=== PATIENT | female | born 1980 | race Caucasian/White ===

== ENCOUNTER 2018-09-06 17:11 | Emergency (ER) | payer SELFPAY ==
--- NOTE | 2018-09-06 17:34 | EDM.PDOC ---
ED HPI GENERAL MEDICAL PROBLEM - General Chief Complaint: Genitourinary Problem Stated Complaint: POSSIBLE UTI Time Seen by Provider: 09/06/18 17:33 Source of Information: Reports: Patient History Limitations: Reports: No Limitations - History of Present Illness INITIAL COMMENTS - FREE TEXT/NARRATIVE: Patient eloped from the emergency room prior to physical examination. 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 Below) Other DRIVER ENGINEER History: BV Musculoskeletal History: Reports: None Neurological History: Reports: None Psychiatric History: Reports: None Endocrine/Metabolic History: Reports: None Hematologic History: Reports: None Immunologic History: Reports: None Oncologic (Cancer) History: Reports: None Dermatologic History: Reports: None - Infectious Disease History Infectious Disease History: Reports: Chicken Pox, Other (See Below) Other Infectious Disease History: childhood - Past Surgical History Head Surgeries/Procedures: Reports: None HEENT Surgical History: Reports: None Cardiovascular Surgical History: Reports: None Respiratory Surgical History: Reports: None GI Surgical History: Reports: None Female Surgical History: Reports: Tubal Ligation, Other (See Below) Other Female Surgeries/Procedures: part of cervix removed Endocrine Surgical History: Reports: None Neurological Surgical History: Reports: None Musculoskeletal Surgical History: Reports: None Oncologic Surgical History: Reports: None Dermatological Surgical History: Reports: None Social & Family History - Family History Family Medical History: Noncontributory - Caffeine Use Caffeine Use: Reports: Coffee ED ROS GENERAL - Review of Systems Review Of Systems: See Below (Not evaluated) ED EXAM, RENAL/ - Physical Exam Exam: See Below (Not evaluated) Course - Orders/Labs/Meds Orders: Active Orders 24 hr Category Date Time Status HCG QUALITATIVE,URINE [URCHEM] Stat Lab 09/06/18 17:16 Ordered UA RFX JOYCE AND CULT IF INDIC [URIN] Stat Lab 09/06/18 17:15 Ordered Departure - Departure Time of Disposition: 18:04 Disposition: Eloped 07 Clinical Impression: Eloped from emergency department - Discharge Information Referrals: PCP,None [Primary Care Provider] - Forms: ED Department Discharge - My Orders Last 24 Hours: My Active Orders 09/06/18 17:15 UA RFX JOYCE AND CULT IF INDIC [URIN] Stat 09/06/18 17:16 HCG QUALITATIVE,URINE [URCHEM] Stat - Assessment/Plan Last 24 Hours: My Active Orders 09/06/18 17:15 UA RFX JOYCE AND CULT IF INDIC [URIN] Stat 09/06/18 17:16 HCG QUALITATIVE,URINE [URCHEM] Stat
== END 2018-09-06 18:04 | disposition left against medical advice (07) ==
LOC: MW.ED 17:11
DX: Z53.21 Procedure and treatment not carried out due to patient leaving prior to being seen by health care provider (principal)
CPT/HCPCS: 99281

== ENCOUNTER 2018-09-07 09:31 | Emergency (ER) | payer SELFPAY ==
--- NOTE | 2018-09-07 09:50 | EDM.PDOC ---
ED HPI GENERAL MEDICAL PROBLEM - General Chief Complaint: Genitourinary Problem Stated Complaint: BLADDER INFECTION Time Seen by Provider: 09/07/18 09:44 - History of Present Illness INITIAL COMMENTS - FREE TEXT/NARRATIVE: HISTORY AND PHYSICAL: History of present illness: Patient 38-year-old white female presents with concern of discomfort with urination frequency she had a UTI approximately 3 weeks prior was put on Bactrim she feels this may have been inadequately treated at that time she denies vaginal discharge or irregular bleeding or other concerns is no fever chills or other complaints she denies back pain Review of systems: As per history of present illness and below otherwise all systems reviewed and negative. Past medical history: As per history of present illness and as reviewed below otherwise noncontributory. Surgical history: As per history of present illness and as reviewed below otherwise noncontributory. Social history: No reported history of drug or alcohol abuse. Family history: As per history of present illness and as reviewed below otherwise noncontributory. Physical exam: HEENT: Atraumatic, normocephalic, pupils reactive, negative for conjunctival pallor or scleral icterus, mucous membranes moist, throat clear, neck supple, nontender, trachea midline. Lungs: Clear to auscultation, breath sounds equal bilaterally, chest nontender. Heart: S1S2, regular, negative for clicks, rubs, or JVD. Abdomen: Soft, nondistended, nontender. Negative for masses or hepatosplenomegaly. Negative for costovertebral tenderness. Pelvis: Stable nontender. Genitourinary: Deferred. Rectal: Deferred. Extremities: Atraumatic, negative for cords or calf pain. Neurovascular unremarkable. Neuro: Awake, alert, oriented. Cranial nerves II through XII unremarkable. Cerebellum unremarkable. Motor and sensory unremarkable throughout. Exam nonfocal. Diagnostics: UA with reflex Micro and culture Therapeutics: None Impression: 1 urinary tract infection Definitive disposition and diagnosis as appropriate pending reevaluation and review of above. 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 Below) Other KILN CLEANER History: BV Musculoskeletal History: Reports: None Neurological History: Reports: None Psychiatric History: Reports: None Endocrine/Metabolic History: Reports: None Hematologic History: Reports: None Immunologic History: Reports: None Oncologic (Cancer) History: Reports: None Dermatologic History: Reports: None - Infectious Disease History Infectious Disease History: Reports: None Other Infectious Disease History: childhood - Past Surgical History Head Surgeries/Procedures: Reports: None HEENT Surgical History: Reports: None Cardiovascular Surgical History: Reports: None Respiratory Surgical History: Reports: None GI Surgical History: Reports: None Female Surgical History: Reports: Tubal Ligation, Other (See Below) Other Female Surgeries/Procedures: part of cervix removed Endocrine Surgical History: Reports: None Neurological Surgical History: Reports: None Musculoskeletal Surgical History: Reports: None Oncologic Surgical History: Reports: None Dermatological Surgical History: Reports: None Social & Family History - Family History Family Medical History: Noncontributory - Tobacco Use Smoking Status *Q: Current Every Day Smoker Years of Tobacco use: 20 Packs/Tins Daily: 0.5 - Caffeine Use Caffeine Use: Reports: Coffee - Recreational Drug Use Recreational Drug Use: No ED ROS GENERAL - Review of Systems Review Of Systems: ROS reveals no pertinent complaints other than HPI. ED EXAM, GENERAL - Physical Exam Exam: See Below (See dictation) Course - Vital Signs Last Recorded V/S: Last Vital Signs Temp 35.7 C 09/07/18 09:42 Pulse 105 H 09/07/18 09:42 Resp 18 09/07/18 09:42 BP 124/76 09/07/18 09:42 Pulse Ox 98 09/07/18 09:42 - Orders/Labs/Meds Orders: Active Orders 24 hr Category Date Time Status UA RFX JOYCE AND CULT IF INDIC [URIN] DAILY Lab 09/07/18 09:45 Ordered Departure - Departure Time of Disposition: 09:49 Disposition: Home, Self-Care 01 Condition: Good Clinical Impression: UTI, Urinary tract infectious disease - Discharge Information Referrals: PCP,None [Primary Care Provider] - Additional Instructions: The following information is given to patients seen in the emergency department who are being discharged to home. This information is to outline your options for follow-up care. We provide all patients seen in our emergency department with a follow-up referral. The need for follow-up, as well as the timing and circumstances, are variable depending upon the specifics of your emergency department visit. If you don't have a primary care physician on staff, we will provide you with a referral. We always advise you to contact your personal physician following an emergency department visit to inform them of the circumstance of the visit and for follow-up with them and/or the need for any referrals to a consulting specialist. The emergency department will also refer you to a specialist when appropriate. This referral assures that you have the opportunity for followup care with a specialist. All of these measure are taken in an effort to provide you with optimal care, which includes your followup. Under all circumstances we always encourage you to contact your private physician who remains a resource for coordinating your care. When calling for followup care, please make the office aware that this follow-up is from your recent emergency room visit. If for any reason you are refused follow-up, please contact the [facility] emergency department at and asked to speak to the emergency department charge nurse. Cipro Pyridium as prescribed follow-up primary medical doctor as needed as discussed and return as needed as discussed - My Orders Last 24 Hours: My Active Orders 09/07/18 09:45 UA RFX JOYCE AND CULT IF INDIC [URIN] DAILY - Assessment/Plan Last 24 Hours: My Active Orders 09/07/18 09:45 UA RFX JOYCE AND CULT IF INDIC [URIN] DAILY
== END 2018-09-07 10:32 | disposition home or self-care (01) ==
LOC: MW.ED 09:31
DX: N39.0 Urinary tract infection, site not specified (principal); Z79.899 Other long term (current) drug therapy
CPT/HCPCS: 81001; 87086; 87088; 87186; 99283

== ENCOUNTER 2022-04-22 13:05 | Emergency (ER) | payer BC | END 2022-04-22 17:28 | LOC: MW.ED 13:05 | DX: S39.92XA Unspecified injury of lower back, initial encounter (principal) | CPT/HCPCS: 72170; 72170-26; 72220; 72220-26; 99283 ==

== ENCOUNTER 2023-06-27 16:15 | Emergency (ER) | payer SELFPAY ==
[2023-06-27 17:44] LABS: BASOPHILS ABSOLUTE AUTO 0.05 K/uL (0.00-0.20); BASOPHILS PERCENT AUTO 0.5 % (0.0-1.0); EOSINOPHILS ABSOLUTE AUTO 0.35 K/uL (0.00-0.45); EOSINOPHILS PERCENT AUTO 3.4 % (0.0-6.0); HEMOGLOBIN 11.9 g/dL (12.0-16.0); IMMATURE GRAN ABSOLUTE AUTO 0.02 K/uL (0.00-0.05); IMMATURE GRAN PERCENT AUTO 0.2 % (0.0-0.4); LYMPHOCYTES ABSOLUTE AUTO 3.58 K/uL (1.00-4.80); LYMPHOCYTES PERCENT AUTO 34.8 % (24.0-44.0); MEAN CORPUSCULAR HEMOGLOBIN 23.2 pg (28.0-32.0); MEAN CORPUSCULAR HGB CONC 31.3 g/dL (32.0-36.0); MEAN CORPUSCULAR VOLUME 73.9 fL (83.0-99.0); MEAN PLATELET VOLUME 10.2 fL (9.4-12.3); MONOCYTES ABSOLUTE AUTO 0.75 K/uL (0.00-0.80); MONOCYTES PERCENT AUTO 7.3 % (0.0-8.0); NEUTROPHILS ABSOLUTE AUTO 5.53 K/uL (1.80-7.70); NEUTROPHILS PERCENT AUTO 53.8 % (41.0-71.0); PLATELET COUNT,PLT 242 K/uL (150-400); RED BLOOD CELL COUNT 5.14 M/uL (4.10-5.30); WHITE BLOOD CELL COUNT,WBC 10.28 K/uL (3.9-11.3)
[2023-06-27 18:01] LABS: INR 0.96 (0.86-1.11)
[2023-06-27 18:25] LABS: A/G RATIO 0.9 (0.9-1.6); ALBUMIN 3.3 g/dL (3.4-5.0); BILIRUBIN TOTAL 0.2 mg/dL (0.2-1.0); CALCIUM 8.9 mg/dL (8.5-10.1); CARBON DIOXIDE,CO2 25.1 mmol/L (21.0-32.0); CREATININE 0.6 mg/dL (0.6-1.0); EST CRCL DRUG DOSING (CG) 100.01 mL/min; POTASSIUM,K 3.6 mmol/L (3.5-5.1); PROTEIN TOTAL,TP 7.1 g/dL (6.4-8.2); TSH ULTRASENSITIVE 1.98 uIU/mL (0.36-3.74)
== END 2023-06-27 20:15 | disposition home or self-care (01) ==
LOC: MW.ED 16:15
DX: N93.8 Other specified abnormal uterine and vaginal bleeding (principal); D50.9 Iron deficiency anemia, unspecified; N83.292 Other ovarian cyst, left side; R93.89 Abnormal findings on diagnostic imaging of other specified body structures; F17.210 Nicotine dependence, cigarettes, uncomplicated; K21.9 Gastro-esophageal reflux disease without esophagitis; Z79.899 Other long term (current) drug therapy
CPT/HCPCS: 36415; 76830; 76830-26; 80053; 82728; 83735; 84443; 84703; 85025; 85610; 99283; 99284

== ENCOUNTER 2023-07-08 17:34 | Emergency (ER) | payer SELFPAY ==
[2023-07-08] MEDS ORDERED: Sodium Chloride 0.9% 1,000 ML IV STA ×2 (17:48→18:53)
[2023-07-08 18:20] LABS: BASOPHILS ABSOLUTE AUTO 0.07 K/uL (0.00-0.20); BASOPHILS PERCENT AUTO 0.6 % (0.0-1.0); EOSINOPHILS ABSOLUTE AUTO 0.34 K/uL (0.00-0.45); EOSINOPHILS PERCENT AUTO 2.9 % (0.0-6.0); HEMATOCRIT 34.6 % (37.0-47.0); HEMOGLOBIN 11.1 g/dL (12.0-16.0); IMMATURE GRAN ABSOLUTE AUTO 0.03 K/uL (0.00-0.05); IMMATURE GRAN PERCENT AUTO 0.3 % (0.0-0.4); LYMPHOCYTES ABSOLUTE AUTO 4.38 K/uL (1.00-4.80); LYMPHOCYTES PERCENT AUTO 37.1 % (24.0-44.0); MEAN CORPUSCULAR HEMOGLOBIN 23.9 pg (28.0-32.0); MEAN CORPUSCULAR HGB CONC 32.1 g/dL (32.0-36.0); MEAN CORPUSCULAR VOLUME 74.4 fL (83.0-99.0); MEAN PLATELET VOLUME 9.9 fL (9.4-12.3); MONOCYTES ABSOLUTE AUTO 0.78 K/uL (0.00-0.80); MONOCYTES PERCENT AUTO 6.6 % (0.0-8.0); NEUTROPHILS PERCENT AUTO 52.5 % (41.0-71.0); PLATELET COUNT,PLT 294 K/uL (150-400); RED BLOOD CELL COUNT 4.65 M/uL (4.10-5.30)
[2023-07-08 18:32] LABS: INR 0.94 (0.86-1.11)
[2023-07-08 18:43] LABS: A/G RATIO 0.9 (0.9-1.6); ALBUMIN 3.3 g/dL (3.4-5.0); BILIRUBIN TOTAL 0.1 mg/dL (0.2-1.0); CALCIUM 8.2 mg/dL (8.5-10.1); CARBON DIOXIDE,CO2 24.3 mmol/L (21.0-32.0); CREATININE 0.7 mg/dL (0.6-1.0); EST CRCL DRUG DOSING (CG) 85.72 mL/min; POTASSIUM,K 3.8 mmol/L (3.5-5.1); PROTEIN TOTAL,TP 6.9 g/dL (6.4-8.2)
== END 2023-07-08 20:40 | disposition home or self-care (01) ==
LOC: MW.ED 17:34
DX: N93.8 Other specified abnormal uterine and vaginal bleeding (principal); O36.0190 Maternal care for anti-D [Rh] antibodies, unspecified trimester, not applicable or unspecified; K21.9 Gastro-esophageal reflux disease without esophagitis; Z79.899 Other long term (current) drug therapy; Z67.41 Type O blood, Rh negative
CPT/HCPCS: 36415; 80053; 85025; 85610; 86850; 86900; 86901; 96360; 96361; 99284; A9270; J7030

== ENCOUNTER 2023-10-09 06:33 | Day surgery (SDC) | payer MEDICAID ==
[~2023-10-09 06:33] MED LIST: Sodium Chloride 0.9% 10 ML Syringe FLUSH PRN; Sodium Chloride 0.9% 2.5 ML Syringe FLUSH PRN; Sodium Chloride 0.9% 20 ML SDV IV PRN; ceFAZolin 2 GM in Sodium Chloride 0.9% 50 ML IV ONE
[2023-10-09] MEDS ORDERED: Scopalamine 1mg/3day Transdermal Patch ONE (06:44)
[2023-10-09] MEDS ORDERED: Gabapentin 300 MG Cap ONE (06:45)
[2023-10-09] MEDS: Lactated Ringers 1,000 ML IV SCH (07:00)
[2023-10-09] MEDS ORDERED: dexmedeTOMIDine HCl 200 MCG/2 ML SDV ONE (07:06)
[2023-10-09] MEDS ORDERED: Water For Injection, Sterile 20 ML ONE (07:07)
[2023-10-09] MEDS ORDERED: Ondansetron 4 MG/2 ML SDV ONE ×3 (07:07→08:17)
[2023-10-09] MEDS ORDERED: Rocuronium Bromide 50 MG/5 ML Syringe ONE ×2 (07:07)
[2023-10-09] MEDS ORDERED: Magnesium Sulfate (4.06 MEQ/ML) 5 GM/10 ML SDV ONE (07:10)
[2023-10-09] MEDS ORDERED: Metoclopramide 10 MG/2 ML SDV ONE (07:11)
[2023-10-09] MEDS: Scopalamine 1mg/3day Transdermal Patch TRDERM PRN (07:16)
[2023-10-09] MEDS ORDERED: propofoL 100 ML ONE (07:16)
[2023-10-09] MEDS ORDERED: Lidocaine 2% 5 ML SDV ONE ×2 (07:21→08:17)
[2023-10-09] MEDS ORDERED: Lidocaine 2% 11 ML Jelly Filled Syringe ONE (07:21)
[2023-10-09] MEDS ORDERED: fentaNYL 100 MCG/2 ML SDV ONE (07:21)
[2023-10-09] MEDS ORDERED: Morphine 10 MG/ML SDV ONE (07:21)
[2023-10-09] MEDS ORDERED: Dexamethasone 4 MG/ML 5 ML MDV ONE (07:23)
[2023-10-09] MEDS ORDERED: Methylene Blue 100 MG/10 ML SDV ONE (07:28)
[2023-10-09] MEDS ORDERED: ceFAZolin 2 GM Vial ONE (07:42)
[2023-10-09] MEDS ORDERED: Esmolol 100 MG/10 ML SDV ONE (08:03)
[2023-10-09] MEDS ORDERED: Ketamine HCL/NACL, ISO-OSM 50 MG/5 ML Syringe ONE (08:05)
[2023-10-09] MEDS ORDERED: Sugammadex Sodium 200 MG/2 ML VIAL IV ONE (08:17)
[2023-10-09] MEDS ORDERED: Ketorolac 30 MG/ML SDV ONE (08:17)
[2023-10-09] MEDS ORDERED: Fluorescein 5 ML Vial ONE (08:51)
[2023-10-09] MEDS ORDERED: Promethazine 25 MG/ML SDV IM PRN (09:08)
[2023-10-09] MEDS ORDERED: Ketorolac 30 MG/ML SDV IVPUSH ONE (09:08)
[2023-10-09] MEDS ORDERED: Morphine 4 MG/ML Syringe IVPUSH PRN (09:08)
[2023-10-09] MEDS ORDERED: Acetaminophen/oxyCODONE 325-5 MG Tab PO PRN (09:08)
[2023-10-09] MEDS ORDERED: Ondansetron 4 MG/2 ML SDV IVPUSH PRN ×2 (09:08→09:29)
[2023-10-09] MEDS ORDERED: droPERidol 5 MG/2 ML SDV IVPUSH PRN (09:29)
[2023-10-09] MEDS ORDERED: Albuterol 0.083% 2.5 MG/3 ML Neb Soln NEB PRN (09:29)
[2023-10-09] MEDS ORDERED: Morphine 2 MG/ML SYRINGE IVPUSH PRN (09:29)
[2023-10-09] MEDS ORDERED: Metoclopramide 10 MG/2 ML SDV IVPUSH PRN (09:29)
[2023-10-09] MEDS ORDERED: Naloxone 0.4 MG/ML SDV IVPUSH PRN (09:29)
[2023-10-09] MEDS: HYDROmorphone 1 MG/ML Syringe IVPUSH PRN (09:30)
[2023-10-09] MEDS: fentaNYL 50 MCG/ML SDV IVPUSH PRN (09:46)
[2023-10-09] MEDS: Acetaminophen/oxyCODONE 325-5 MG Tab PO PRN (11:52)
[2023-10-09] MEDS: Ketorolac 30 MG/ML SDV IVPUSH PRN (15:08)
[2023-10-09] MEDS: Nicotine 14 MG/24 Hr Patch TRDERM SCH (18:19)
[2023-10-09] MEDS: Docusate Sodium 100 MG Cap PO SCH (20:17)
[2023-10-10 06:16] LABS: BASOPHILS ABSOLUTE AUTO 0.02 K/uL (0.00-0.20); BASOPHILS PERCENT AUTO 0.2 % (0.0-1.0); EOSINOPHILS ABSOLUTE AUTO 0.02 K/uL (0.00-0.45); EOSINOPHILS PERCENT AUTO 0.2 % (0.0-6.0); HEMATOCRIT 33.6 % (37.0-47.0); HEMOGLOBIN 10.4 g/dL (12.0-16.0); IMMATURE GRAN ABSOLUTE AUTO 0.06 K/uL (0.00-0.05); IMMATURE GRAN PERCENT AUTO 0.5 % (0.0-0.4); MEAN CORPUSCULAR HEMOGLOBIN 23.9 pg (28.0-32.0); MEAN CORPUSCULAR VOLUME 77.2 fL (83.0-99.0); MEAN PLATELET VOLUME 10.2 fL (9.4-12.3); MONOCYTES PERCENT AUTO 8.9 % (0.0-8.0); NEUTROPHILS ABSOLUTE AUTO 8.58 K/uL (1.80-7.70); NEUTROPHILS PERCENT AUTO 69.2 % (41.0-71.0); PLATELET COUNT,PLT 217 K/uL (150-400); RED BLOOD CELL COUNT 4.35 M/uL (4.10-5.30); WHITE BLOOD CELL COUNT,WBC 12.38 K/uL (3.9-11.3)
[2023-10-10 06:41] LABS: CALCIUM 8.7 mg/dL (8.5-10.1); CARBON DIOXIDE,CO2 26.5 mmol/L (21.0-32.0); CREATININE 0.7 mg/dL (0.6-1.0); EST CRCL DRUG DOSING (CG) 91.37 mL/min; POTASSIUM,K 3.9 mmol/L (3.5-5.1)
[2023-10-10] MEDS ORDERED: Nicotine 14 MG/24 Hr Patch TRDERM SCH (09:00)
== END 2023-10-10 09:52 | disposition home or self-care (01) ==
LOC: MW.SDS 06:33 → MW.OB 11:49 → MW.SDS 10-10 09:52
PROVIDERS: ATTEND Obstetrics & Gynecology
DX: D25.1 Intramural leiomyoma of uterus (principal); D25.2 Subserosal leiomyoma of uterus; N80.03 Adenomyosis of the uterus; D64.9 Anemia, unspecified; K21.9 Gastro-esophageal reflux disease without esophagitis; F17.210 Nicotine dependence, cigarettes, uncomplicated; Z79.899 Other long term (current) drug therapy
CPT/HCPCS: 36415; 58260; 80048; 84703; 85025; A9270; J0131; J0690; J1100; J1170; J1885; J2270; J2704; J3010; J3475; J3490; J7120; 00944; J2405; J2765; Q9968

== ENCOUNTER 2023-11-03 10:16 | Emergency (ER) | payer MEDICAID ==
[2023-11-03 11:12] LABS: BASOPHILS ABSOLUTE AUTO 0.03 K/uL (0.00-0.20); BASOPHILS PERCENT AUTO 0.3 % (0.0-1.0); EOSINOPHILS ABSOLUTE AUTO 0.27 K/uL (0.00-0.45); EOSINOPHILS PERCENT AUTO 2.8 % (0.0-6.0); HEMATOCRIT 45.5 % (37.0-47.0); HEMOGLOBIN 14.7 g/dL (12.0-16.0); IMMATURE GRAN PERCENT AUTO 0.2 % (0.0-0.4); LYMPHOCYTES ABSOLUTE AUTO 2.79 K/uL (1.00-4.80); LYMPHOCYTES PERCENT AUTO 29.3 % (24.0-44.0); MEAN CORPUSCULAR HEMOGLOBIN 25.1 pg (28.0-32.0); MEAN CORPUSCULAR HGB CONC 32.3 g/dL (32.0-36.0); MEAN CORPUSCULAR VOLUME 77.6 fL (83.0-99.0); MEAN PLATELET VOLUME 9.4 fL (9.4-12.3); MONOCYTES ABSOLUTE AUTO 0.66 K/uL (0.00-0.80); MONOCYTES PERCENT AUTO 6.9 % (0.0-8.0); NEUTROPHILS ABSOLUTE AUTO 5.74 K/uL (1.80-7.70); NEUTROPHILS PERCENT AUTO 60.5 % (41.0-71.0); PLATELET COUNT,PLT 276 K/uL (150-400); RED BLOOD CELL COUNT 5.86 M/uL (4.10-5.30); WHITE BLOOD CELL COUNT,WBC 9.51 K/uL (3.9-11.3)
[2023-11-03 11:13] LABS: IMMATURE GRAN ABSOLUTE AUTO 0.02 K/uL (0.00-0.05)
[2023-11-03] MEDS: Ondansetron 4 MG/2 ML SDV IVPUSH STA (11:13)
[2023-11-03] MEDS: Sodium Chloride 0.9% 1,000 ML IV STA (11:13)
[2023-11-03] MEDS: Ketorolac 30 MG/ML SDV IVPUSH STA (11:13)
[2023-11-03] MEDS: Alum Hydro/Mag Hydro/Simeth XS 15 ML, Lidocaine 2% 5 ML PO STA (11:13)
[2023-11-03] MEDS: Sodium Chloride 0.9% 2.5 ML Syringe FLUSH PRN (11:14)
[2023-11-03] MEDS: Sodium Chloride 0.9% 10 ML Syringe FLUSH PRN (11:14)
[2023-11-03 11:25] LABS: INR 0.98 (0.86-1.11); PTT,PARTIAL THROMBOPLSTIN TIME 32.1 SEC (23.9-30.7)
[2023-11-03 11:39] LABS: A/G RATIO 0.8 (0.9-1.6); ALANINE AMINOTRANSFERASE,ALT 21 IU/L (14-63); ALBUMIN 3.5 g/dL (3.4-5.0); ALKALINE PHOSPHATASE 95 U/L (46-116); ASPARTATE AMNIOTRANSFERASE,AST 11 IU/L (15-37); BILIRUBIN TOTAL 0.3 mg/dL (0.2-1.0); BLOOD UREA NITROGEN,BUN 11 mg/dL (7.0-18.0); CALCIUM 9.7 mg/dL (8.5-10.1); CARBON DIOXIDE,CO2 24.2 mmol/L (21.0-32.0); CHLORIDE,CL 105 mmol/L (98-107); CREATININE 0.8 mg/dL (0.6-1.0); EST CRCL DRUG DOSING (CG) 75.01 mL/min; GLUCOSE RANDOM 108 mg/dL (74-106); LIPASE 26 U/L (16-77); POTASSIUM,K 4.2 mmol/L (3.5-5.1); PROTEIN TOTAL,TP 7.9 g/dL (6.4-8.2); SODIUM,NA 139 mmol/L (136-145)
[2023-11-03 11:44] LABS: ESTIMATED GFR 94 mL/min (>60)
[2023-11-03] MEDS: Iopamidol 755 Mg/ML 100 ML Bottle IVPUSH ONE (12:54)
== END 2023-11-03 14:32 | disposition home or self-care (01) ==
LOC: MW.ED 10:16
DX: K59.00 Constipation, unspecified (principal); R10.13 Epigastric pain; K21.9 Gastro-esophageal reflux disease without esophagitis; E66.9 Obesity, unspecified; Z75.8 Other problems related to medical facilities and other health care; Z79.899 Other long term (current) drug therapy; Z86.19 Personal history of other infectious and parasitic diseases; Z68.41 Body mass index [BMI] 40.0-44.9, adult
CPT/HCPCS: 36415; 74177; 80053; 82728; 83550; 83690; 84484; 85025; 85610; 85730; 96361; 96374; 96375; 99284; A9270; J1885; J2405; J3490; J7030; Q9967; 93010

== ENCOUNTER 2023-12-11 10:46 | Day surgery (SDC) | payer MEDICAID ==
[~2023-12-11 10:46] MED LIST changes: -ceFAZolin 2 GM in Sodium Chloride 0.9% 50 ML IV ONE
[2023-12-11] MEDS: Lactated Ringers 1,000 ML IV SCH (11:38)
[2023-12-11] MEDS ORDERED: propofoL 50 ML ONE (11:55)
== END 2023-12-11 13:25 | disposition home or self-care (01) ==
LOC: MW.SDS 10:46
PROVIDERS: ATTEND Surgery
DX: D12.5 Benign neoplasm of sigmoid colon (principal); D12.8 Benign neoplasm of rectum; K31.89 Other diseases of stomach and duodenum; K64.3 Fourth degree hemorrhoids; K44.9 Diaphragmatic hernia without obstruction or gangrene; K21.9 Gastro-esophageal reflux disease without esophagitis; I78.1 Nevus, non-neoplastic; R19.4 Change in bowel habit; F41.9 Anxiety disorder, unspecified; J45.20 Mild intermittent asthma, uncomplicated; F32.A Depression, unspecified; E66.9 Obesity, unspecified; D50.9 Iron deficiency anemia, unspecified; K58.9 Irritable bowel syndrome, unspecified; E78.00 Pure hypercholesterolemia, unspecified; Z80.0 Family history of malignant neoplasm of digestive organs; Z79.899 Other long term (current) drug therapy; Z68.41 Body mass index [BMI] 40.0-44.9, adult; Z87.891 Personal history of nicotine dependence
CPT/HCPCS: 43239; 45380; J2704; J7120; 00813

== ENCOUNTER 2024-01-12 04:28 | Emergency (ER) | payer MEDICAID ==
[2024-01-12] MEDS: Ibuprofen 400 MG Tab PO ONE (04:54)
[2024-01-12] MEDS: Acetaminophen 500 MG Tab PO ONE (04:55)
== END 2024-01-12 06:07 | disposition home or self-care (01) ==
LOC: MW.ED 04:28
DX: U07.1 COVID-19 (principal); E66.9 Obesity, unspecified; Z90.710 Acquired absence of both cervix and uterus; Z68.42 Body mass index [BMI] 45.0-49.9, adult; Z75.8 Other problems related to medical facilities and other health care
CPT/HCPCS: 71046; 87635; 99285; A9270; U0002

== ENCOUNTER 2024-01-30 17:26 | Emergency (ER) | payer MEDICAID ==
[2024-01-30 17:58] LABS: APPEARANCE,URINE CLEAR; BILIRUBIN,URINE NEGATIVE (NEGATIVE); COLOR,URINE YELLOW; GLUCOSE,URINE NEGATIVE (NEGATIVE); KETONES,URINE NEGATIVE (NEGATIVE); LEUKOCYTE ESTERASE,URINE NEGATIVE (NEGATIVE); NITRITE,URINE NEGATIVE (NEGATIVE); OCCULT BLOOD,URINE NEGATIVE (NEGATIVE); PH,URINE 6.5 (5.0-8.0); PROTEIN,URINE NEGATIVE (NEGATIVE); UROBILINOGEN,URINE 0.2 EU/dL (<2.0)
[2024-01-30] MEDS: Lidocaine 4% 1 each Patch TOP STA (18:38)
[2024-01-30] MEDS: Sodium Chloride 0.9% 1,000 ML IV ONE (18:38)
[2024-01-30] MEDS: Ketorolac 30 MG/ML SDV IVPUSH ONE (18:38)
[2024-01-30 18:59] LABS: BASOPHILS ABSOLUTE AUTO 0.04 K/uL (0.00-0.20); BASOPHILS PERCENT AUTO 0.4 % (0.0-1.0); EOSINOPHILS ABSOLUTE AUTO 0.31 K/uL (0.00-0.45); HEMATOCRIT 39.8 % (37.0-47.0); HEMOGLOBIN 13.6 g/dL (12.0-16.0); IMMATURE GRAN ABSOLUTE AUTO 0.02 K/uL (0.00-0.05); IMMATURE GRAN PERCENT AUTO 0.2 % (0.0-0.4); LYMPHOCYTES ABSOLUTE AUTO 3.62 K/uL (1.00-4.80); LYMPHOCYTES PERCENT AUTO 35.3 % (24.0-44.0); MEAN CORPUSCULAR HEMOGLOBIN 28.1 pg (28.0-32.0); MEAN CORPUSCULAR HGB CONC 34.2 g/dL (32.0-36.0); MEAN CORPUSCULAR VOLUME 82.2 fL (83.0-99.0); MEAN PLATELET VOLUME 9.6 fL (9.4-12.3); MONOCYTES ABSOLUTE AUTO 0.81 K/uL (0.00-0.80); MONOCYTES PERCENT AUTO 7.9 % (0.0-8.0); NEUTROPHILS ABSOLUTE AUTO 5.45 K/uL (1.80-7.70); NEUTROPHILS PERCENT AUTO 53.2 % (41.0-71.0); PLATELET COUNT,PLT 247 K/uL (150-400); RED BLOOD CELL COUNT 4.84 M/uL (4.10-5.30); WHITE BLOOD CELL COUNT,WBC 10.25 K/uL (3.9-11.3)
[2024-01-30 19:27] LABS: A/G RATIO 0.9 (0.9-1.6); ALBUMIN 3.3 g/dL (3.4-5.0); BILIRUBIN TOTAL 0.3 mg/dL (0.2-1.0); CALCIUM 9.2 mg/dL (8.5-10.1); CARBON DIOXIDE,CO2 28.3 mmol/L (21.0-32.0); CREATININE 0.6 mg/dL (0.6-1.0); EST CRCL DRUG DOSING (CG) 100.01 mL/min; MAGNESIUM 1.9 mg/dL (1.8-2.4); PROTEIN TOTAL,TP 7.1 g/dL (6.4-8.2)
== END 2024-01-30 20:14 | disposition home or self-care (01) ==
LOC: MW.ED 17:26
DX: M54.9 Dorsalgia, unspecified (principal); E78.00 Pure hypercholesterolemia, unspecified; E66.9 Obesity, unspecified; Z79.899 Other long term (current) drug therapy; Z75.8 Other problems related to medical facilities and other health care; Z86.16 Personal history of COVID-19; Z87.891 Personal history of nicotine dependence; Z68.41 Body mass index [BMI] 40.0-44.9, adult
CPT/HCPCS: 36415; 80053; 81003; 81025; 83735; 85025; 96361; 96374; 99284; A9270; J1885; J7030

== ENCOUNTER 2024-02-12 22:16 | Emergency (ER) | payer MEDICAID ==
[2024-02-12 22:40] LABS: BASOPHILS ABSOLUTE AUTO 0.05 K/uL (0.00-0.20); BASOPHILS PERCENT AUTO 0.4 % (0.0-1.0); EOSINOPHILS ABSOLUTE AUTO 0.34 K/uL (0.00-0.45); EOSINOPHILS PERCENT AUTO 2.8 % (0.0-6.0); HEMATOCRIT 39.4 % (37.0-47.0); HEMOGLOBIN 13.3 g/dL (12.0-16.0); IMMATURE GRAN ABSOLUTE AUTO 0.03 K/uL (0.00-0.05); IMMATURE GRAN PERCENT AUTO 0.2 % (0.0-0.4); LYMPHOCYTES ABSOLUTE AUTO 4.59 K/uL (1.00-4.80); LYMPHOCYTES PERCENT AUTO 38.2 % (24.0-44.0); MEAN CORPUSCULAR HEMOGLOBIN 28.1 pg (28.0-32.0); MEAN CORPUSCULAR HGB CONC 33.8 g/dL (32.0-36.0); MEAN CORPUSCULAR VOLUME 83.3 fL (83.0-99.0); MEAN PLATELET VOLUME 9.6 fL (9.4-12.3); MONOCYTES ABSOLUTE AUTO 0.95 K/uL (0.00-0.80); MONOCYTES PERCENT AUTO 7.9 % (0.0-8.0); NEUTROPHILS ABSOLUTE AUTO 6.06 K/uL (1.80-7.70); NEUTROPHILS PERCENT AUTO 50.5 % (41.0-71.0); PLATELET COUNT,PLT 225 K/uL (150-400); RED BLOOD CELL COUNT 4.73 M/uL (4.10-5.30); WHITE BLOOD CELL COUNT,WBC 12.02 K/uL (3.9-11.3)
[2024-02-12 23:01] LABS: ALBUMIN 3.4 g/dL (3.4-5.0); BILIRUBIN TOTAL 0.4 mg/dL (0.2-1.0); CARBON DIOXIDE,CO2 26.5 mmol/L (21.0-32.0); CREATININE 0.7 mg/dL (0.6-1.0); EST CRCL DRUG DOSING (CG) 85.72 mL/min; POTASSIUM,K 3.5 mmol/L (3.5-5.1); PROTEIN TOTAL,TP 6.9 g/dL (6.4-8.2)
== END 2024-02-12 23:15 | disposition home or self-care (01) ==
LOC: MW.ED 22:16
DX: K64.9 Unspecified hemorrhoids (principal); E78.00 Pure hypercholesterolemia, unspecified; E66.9 Obesity, unspecified; Z75.8 Other problems related to medical facilities and other health care; Z79.899 Other long term (current) drug therapy; Z86.16 Personal history of COVID-19; Z90.710 Acquired absence of both cervix and uterus; Z68.41 Body mass index [BMI] 40.0-44.9, adult
CPT/HCPCS: 36415; 80053; 85025; 99283

== ENCOUNTER 2024-03-11 06:16 | Day surgery (SDC) | payer MEDICAID ==
[2024-03-11] MEDS ORDERED: metroNIDAZOLE/Normal Saline 100 ML ONE (06:52)
[2024-03-11] MEDS: Lactated Ringers 1,000 ML IV SCH (07:02)
[2024-03-11] MEDS: metroNIDAZOLE/Normal Saline 500 MG in Premix Bag 1 BAG IV ONE (07:03)
[2024-03-11] MEDS ORDERED: propofoL 50 ML ONE (07:15)
[2024-03-11] MEDS ORDERED: Midazolam 1 MG/ML 2 ML SDV ONE (07:15)
[2024-03-11] MEDS ORDERED: Bupivacaine 0.5% 30 ML SDV ONE (07:17)
[2024-03-11] MEDS ORDERED: Lidocaine 2% 11 ML Jelly Filled Syringe ONE (07:18)
[2024-03-11] MEDS ORDERED: Chloroprocaine 3% 30 MG/ML 20 ML SDV ONE (07:20)
[2024-03-11] MEDS ORDERED: Metoclopramide 10 MG/2 ML SDV IVPUSH PRN (07:33)
[2024-03-11] MEDS ORDERED: HYDROmorphone 1 MG/ML Syringe IVPUSH PRN (07:33)
[2024-03-11] MEDS ORDERED: Naloxone 0.4 MG/ML SDV IVPUSH PRN (07:33)
[2024-03-11] MEDS ORDERED: droPERidol 5 MG/2 ML SDV IVPUSH PRN (07:33)
[2024-03-11] MEDS ORDERED: Albuterol 0.083% 2.5 MG/3 ML Neb Soln NEB PRN (07:33)
[2024-03-11] MEDS ORDERED: fentaNYL 50 MCG/ML SDV IVPUSH PRN (07:33)
[2024-03-11] MEDS ORDERED: Morphine 2 MG/ML SYRINGE IVPUSH PRN (07:33)
[2024-03-11] MEDS ORDERED: Ondansetron 4 MG/2 ML SDV IVPUSH PRN (07:33)
[2024-03-11] MEDS ORDERED: Ketorolac 30 MG/ML SDV ONE (08:45)
== END 2024-03-11 10:50 | disposition home or self-care (01) ==
LOC: MW.SDS 06:16
PROVIDERS: ATTEND Surgery
DX: K64.3 Fourth degree hemorrhoids (principal); F32.A Depression, unspecified; K21.9 Gastro-esophageal reflux disease without esophagitis; J45.20 Mild intermittent asthma, uncomplicated; E78.00 Pure hypercholesterolemia, unspecified; Z87.891 Personal history of nicotine dependence; Z79.899 Other long term (current) drug therapy
CPT/HCPCS: 46260; A9270; J0131; J0665; J1836; J1885; J2250; J2401; J2704; J7120; 00902